=== PATIENT | female | born 1945 | race Caucasian/White ===

== ENCOUNTER → 2023-07-28 07:42 | Outpatient (REF) | payer MEDICARE, OTHER, SELFPAY | LOC: HWRAD 07:42 | PROVIDERS: ATTENDING PHYSICIAN Obstetrics & Gynecology Gynecology; FAMILY PHYSICIAN Internal Medicine | DX: M81.0 Age-related osteoporosis without current pathological fracture (principal); Z12.31 Encounter for screening mammogram for malignant neoplasm of breast | CPT/HCPCS: 77063; 77067; 77080 ==

== ENCOUNTER → 2023-10-18 14:58 | Outpatient (REF) | payer MEDICARE, OTHER, SELFPAY | LOC: WDC 14:58 | PROVIDERS: ATTENDING PHYSICIAN Obstetrics & Gynecology Gynecology; FAMILY PHYSICIAN Internal Medicine | DX: R92.2 Inconclusive mammogram (principal); Z80.3 Family history of malignant neoplasm of breast | CPT/HCPCS: 76641 ==

== ENCOUNTER → 2023-12-20 07:05 | Outpatient (REF) | payer MEDICARE, OTHER, SELFPAY ==
[2023-12-20 09:24] LABS: ALT (SGPT) 18 U/L (0-35); AST (SGOT) 25 U/L (14-36); Albumin 4.1 g/dl (3.5-5.0); Alkaline Phosphatase 76 U/L (38-126); Blood Urea Nitrogen 19 mg/dl (7-17); Calcium 9.4 mg/dl (8.4-10.2); Carbon Dioxide 31 mmol/L (22-30); Chloride 102 mmol/L (98-107); Glucose 101 mg/dl (70-99); HDL Cholesterol 70 mg/dl; LDL Cholesterol, Calculated 110 mg/dl; Potassium 4.1 mmol/L (3.5-5.1); Sodium 140 mmol/L (135-145); Total Bilirubin 0.7 mg/dl (0.2-1.3); Total Cholesterol 192 mg/dl (50-199); Triglyceride 63 mg/dl (10-149); Very Low Density Lipoprotein 12 mg/dl (0-30); eGFR > 60.00
[2023-12-20 09:29] LABS: % Basophils 0.9 % (0-2); % Eosinophils 2.4 % (0-6); % Immature Granulocytes 0.2 % (0-0.5); % Lymphocytes 22.8 % (20.5-51.1); % Monocytes 7.6 % (1.7-9.3); % Neutrophils 66.1 % (42.2-75.2); Absolute Basophils 0.1 10^3/uL (0-0.2); Absolute Eosinophils 0.1 10^3/uL (0-0.7); Absolute Lymphocytes 1.3 10^3/uL (1.2-3.4); Absolute Monocytes 0.4 10^3/uL (0.1-0.6); Absolute Neutrophils 3.8 10^3/uL (1.4-6.5); Hematocrit 37.1 % (37.0-47.0); Mean Corp Hgb Conc. 32.3 g/dL (33.0-37.0); Mean Corpuscular Hgb 30.7 pg (27.0-31.0); Mean Corpuscular Volume 94.9 fL (81.0-99.0); Mean Platelet Volume 10.4 fL (7.4-10.4); Nucleated Red Blood Cells % 0 %; Platelet Count 179 10^3/uL (130-400); Red Blood Cell Count 3.91 10^6/uL (4.20-5.40); White Blood Cell Count 5.8 10^3/uL (4.8-10.8)
[2023-12-20 09:40] LABS: Vitamin D, 25-OH*** 38.9 ng/mL (30-80)
[2023-12-20 09:54] LABS: TSH 1.87 uIU/ml (0.47-4.68)
[2023-12-20 10:29] LABS: Glycohemoglobin (HgbA1c) 5.8 % (4.0-5.6)
== END ==
LOC: HWLAB 07:05
PROVIDERS: ATTENDING PHYSICIAN Internal Medicine Gastroenterology; FAMILY PHYSICIAN Internal Medicine; OTHER PHYSICIAN Internal Medicine Cardiovascular Disease; REFERRING PHYSICIAN Internal Medicine
DX: K21.00 Gastro-esophageal reflux disease with esophagitis, without bleeding (principal); M81.0 Age-related osteoporosis without current pathological fracture; Z51.81 Encounter for therapeutic drug level monitoring; E03.9 Hypothyroidism, unspecified; E55.9 Vitamin D deficiency, unspecified; R73.01 Impaired fasting glucose; E78.5 Hyperlipidemia, unspecified; Z00.00 Encounter for general adult medical examination without abnormal findings
CPT/HCPCS: 36415; 80053; 80061; 82306; 83036; 84443; 85025

== ENCOUNTER → 2024-03-08 08:41 | Outpatient (REF) | payer MEDICARE, OTHER, SELFPAY | LOC: HWRAD 08:41 | PROVIDERS: ATTENDING PHYSICIAN Obstetrics & Gynecology; FAMILY PHYSICIAN Internal Medicine; REFERRING PHYSICIAN Obstetrics & Gynecology Gynecology | DX: R10.9 Unspecified abdominal pain (principal) | CPT/HCPCS: 76770 ==

== ENCOUNTER → 2024-04-17 14:03 | Outpatient (REF) | payer MEDICARE, OTHER, SELFPAY | LOC: WDC 14:03 | PROVIDERS: ATTENDING PHYSICIAN Obstetrics & Gynecology Gynecology; FAMILY PHYSICIAN Internal Medicine | DX: R92.8 Other abnormal and inconclusive findings on diagnostic imaging of breast (principal) | CPT/HCPCS: 76642 ==

== ENCOUNTER → 2024-07-31 07:00 | Outpatient (REF) | payer MEDICARE, OTHER, SELFPAY | LOC: HWWDC 07:00 | PROVIDERS: ATTENDING PHYSICIAN Obstetrics & Gynecology Gynecology; FAMILY PHYSICIAN Internal Medicine | DX: Z12.31 Encounter for screening mammogram for malignant neoplasm of breast (principal) | CPT/HCPCS: 77063; 77067 ==

== ENCOUNTER → 2024-08-19 08:37 | Outpatient (REF) | payer MEDICARE, OTHER, SELFPAY ==
[2024-08-19 11:01] LABS: ALT (SGPT) 16 U/L (0-35); AST (SGOT) 24 U/L (14-36); Albumin 4.2 g/dl (3.5-5.0); Alkaline Phosphatase 81 U/L (38-126); Blood Urea Nitrogen 18 mg/dl (7-17); Calcium 9.2 mg/dl (8.4-10.2); Carbon Dioxide 30 mmol/L (22-30); Chloride 101 mmol/L (98-107); Glucose 99 mg/dl (70-99); HDL Cholesterol 57 mg/dl; LDL Cholesterol, Calculated 104 mg/dl; Potassium 4.6 mmol/L (3.5-5.1); Sodium 138 mmol/L (135-145); Total Bilirubin 0.8 mg/dl (0.2-1.3); Total Cholesterol 173 mg/dl (50-199); Total Protein 7.1 g/dl (6.3-8.2); Triglyceride 62 mg/dl (10-149); Very Low Density Lipoprotein 12 mg/dl (0-30); eGFR > 60.00
[2024-08-19 11:17] LABS: Vitamin D, 25-OH*** 31.6 ng/mL (30-80)
[2024-08-19 12:49] LABS: Glycohemoglobin (HgbA1c) 5.9 % (4.0-5.6)
== END ==
LOC: REG 08:37
PROVIDERS: ATTENDING PHYSICIAN Internal Medicine Cardiovascular Disease; FAMILY PHYSICIAN Nurse Practitioner; REFERRING PHYSICIAN Urology
DX: Z00.00 Encounter for general adult medical examination without abnormal findings (principal); R73.09 Other abnormal glucose; I10 Essential (primary) hypertension; E55.9 Vitamin D deficiency, unspecified; R73.01 Impaired fasting glucose; E11.9 Type 2 diabetes mellitus without complications; M89.9 Disorder of bone, unspecified; K21.00 Gastro-esophageal reflux disease with esophagitis, without bleeding
CPT/HCPCS: 36415; 80053; 80061; 82306; 83036

== ENCOUNTER → 2024-09-08 08:13 | Outpatient (REF) | payer MEDICARE, OTHER, SELFPAY | LOC: HWRAD 08:13 | PROVIDERS: ATTENDING PHYSICIAN Urology; FAMILY PHYSICIAN Internal Medicine | DX: N28.1 Cyst of kidney, acquired (principal) | CPT/HCPCS: 74170; Q9967 ==

== ENCOUNTER → 2024-10-16 08:02 | Outpatient (REF) | payer MEDICARE, OTHER, SELFPAY | LOC: WDC 08:02 | PROVIDERS: ATTENDING PHYSICIAN Surgery; FAMILY PHYSICIAN Internal Medicine | DX: R92.2 Inconclusive mammogram (principal); R92.30 Dense breasts, unspecified; N63.21 Unspecified lump in the left breast, upper outer quadrant | CPT/HCPCS: 76641 ==

== ENCOUNTER → 2024-11-24 06:34 | Outpatient (REF) | payer MEDICARE, OTHER, SELFPAY ==
[2024-11-24 09:54] LABS: ALT (SGPT) 16 U/L (0-35); AST (SGOT) 22 U/L (14-36); Alkaline Phosphatase 81 U/L (38-126); Blood Urea Nitrogen 19 mg/dl (7-17); Calcium 9.3 mg/dl (8.4-10.2); Carbon Dioxide 28 mmol/L (22-30); Chloride 106 mmol/L (98-107); Glucose 110 mg/dl (70-99); Potassium 4.1 mmol/L (3.5-5.1); Sodium 137 mmol/L (135-145); Total Bilirubin 0.7 mg/dl (0.2-1.3); eGFR > 60.00
[2024-11-24 10:19] LABS: Hematocrit 34.3 % (37.0-47.0); Hemoglobin 11.4 g/dL (12.0-16.0); Mean Corp Hgb Conc. 33.2 g/dL (33.0-37.0); Mean Corpuscular Hgb 31.4 pg (27.0-31.0); Mean Corpuscular Volume 94.5 fL (81.0-99.0); Mean Platelet Volume 10.3 fL (7.4-10.4); Platelet Count 203 10^3/uL (130-400); Red Blood Cell Count 3.63 10^6/uL (4.20-5.40); Red Cell Dist. Width 12.5 % (11.5-14.5)
== END ==
LOC: HWLAB 06:34
PROVIDERS: ATTENDING PHYSICIAN Internal Medicine Gastroenterology; FAMILY PHYSICIAN Internal Medicine; OTHER PHYSICIAN Internal Medicine Cardiovascular Disease; OTHER PHYSICIAN Obstetrics & Gynecology; REFERRING PHYSICIAN Orthopaedic Surgery Adult Reconstructive Orthopaedic Surgery
DX: K58.9 Irritable bowel syndrome, unspecified (principal)
CPT/HCPCS: 36415; 80053; 85027

== ENCOUNTER → 2025-01-26 08:11 | Outpatient (REF) | payer MEDICARE, OTHER, SELFPAY ==
[2025-01-26 09:34] LABS: Hematocrit 35.0 % (37.0-47.0); Hemoglobin 11.3 g/dL (12.0-16.0); Mean Corp Hgb Conc. 32.3 g/dL (33.0-37.0); Mean Corpuscular Volume 92.8 fL (81.0-99.0); Nucleated Red Blood Cells % 0 %; Platelet Count 246 10^3/uL (130-400); Red Cell Dist. Width 12.5 % (11.5-14.5)
[2025-01-26 09:56] LABS: Glycohemoglobin (HgbA1c) 5.7 % (4.0-5.6)
[2025-01-26 10:28] LABS: Blood Urea Nitrogen 15 mg/dl (7-17); Calcium 9.3 mg/dl (8.4-10.2); Carbon Dioxide 28 mmol/L (22-30); Chloride 102 mmol/L (98-107); Glucose 103 mg/dl (70-99); HDL Cholesterol 54 mg/dl; Iron 96 ug/dl (37-170); LDL Cholesterol, Calculated 126 mg/dl; Potassium 4.4 mmol/L (3.5-5.1); Sodium 138 mmol/L (135-145); Very Low Density Lipoprotein 15 mg/dl (0-30); eGFR > 60.00
[2025-01-26 11:00] LABS: TSH 2.58 uIU/ml (0.47-4.68)
== END ==
LOC: HWLAB 08:11
PROVIDERS: ATTENDING PHYSICIAN Internal Medicine; OTHER PHYSICIAN Internal Medicine Cardiovascular Disease; OTHER PHYSICIAN Internal Medicine Gastroenterology; REFERRING PHYSICIAN Obstetrics & Gynecology
DX: E55.9 Vitamin D deficiency, unspecified (principal); E03.9 Hypothyroidism, unspecified; E78.5 Hyperlipidemia, unspecified; R73.03 Prediabetes; R53.83 Other fatigue
CPT/HCPCS: 36415; 80048; 80061; 83036; 83540; 84443; 85025

== ENCOUNTER → 2025-03-01 07:27 | Outpatient (REF) | payer MEDICARE, OTHER, SELFPAY ==
[2025-03-01 16:01] LABS: Lyme Antibody Screen, EIA Negative (Negative)
== END ==
LOC: HWLAB 07:27
PROVIDERS: ATTENDING PHYSICIAN Internal Medicine
DX: S40.861A Insect bite (nonvenomous) of right upper arm, initial encounter (principal)
CPT/HCPCS: 36415; 86618

== ENCOUNTER → 2025-03-02 07:39 | Outpatient (REF) | payer MEDICARE, OTHER, SELFPAY | LOC: RAD 07:39 | PROVIDERS: ATTENDING PHYSICIAN Internal Medicine Gastroenterology; FAMILY PHYSICIAN Internal Medicine | DX: K58.9 Irritable bowel syndrome, unspecified (principal) | CPT/HCPCS: 74177; Q9967 ==

== ENCOUNTER → 2025-04-02 08:31 | Outpatient (REF) | payer MEDICARE, OTHER, SELFPAY | LOC: WDC 08:31 | PROVIDERS: ATTENDING PHYSICIAN Surgery; FAMILY PHYSICIAN Internal Medicine | DX: R92.8 Other abnormal and inconclusive findings on diagnostic imaging of breast (principal) | CPT/HCPCS: 76642 ==